=== PATIENT | male | born 1985 ===

== ENCOUNTER → 2016-05-13 | Outpatient (CLI) | payer BC ==
[2016-05-13 16:47] VITALS: BP 140/92
== END ==
LOC: MHUC 16:19
PROVIDERS: ATTEND Physician Assistant
DX: R19.7 Diarrhea, unspecified (principal); A08.0 Rotaviral enteritis
CPT/HCPCS: 99213

== ENCOUNTER → 2016-05-13 | Outpatient (CLI) | payer BC ==
[2016-05-13 17:10] LABS: BASOPHILS % (AUTO) 0 % (0-2); EOSINOPHILS % (AUTO) 0 % (0-4); LYMPHOCYTES # (AUTO) 1.4 X10^3; MEAN CORPUSCULAR HEMOGLOBIN 28.2 PG (26.0-34.0); MEAN CORPUSCULAR HGB CONC 35.3 g/dL (31.0-37.0); MEAN CORPUSCULAR VOLUME 80 FL (80-100); MEAN PLATELET VOLUME 9.7 FL (6.0-9.5); MONOCYTES # (AUTO) 1.2 X10^3; MONOCYTES % (AUTO) 14 % (3-11); NEUTROPHILS % (AUTO) 70 % (51-67); PLATELET COUNT 199 10^3uL (150-450); WHITE BLOOD COUNT 8.58 10^3uL (4.0-11.0)
== END ==
LOC: LAB 16:52
PROVIDERS: ATTEND Nurse Practitioner
DX: R19.7 Diarrhea, unspecified (principal)
CPT/HCPCS: 36415; 80048; 84443; 85025; 87507